=== PATIENT | male | born 1990 | race Hispanic/Latino ===

== ENCOUNTER 2017-11-28 15:14 | Emergency (ER) | payer SELFPAY ==
[2017-11-28] MEDS ORDERED: Lidocaine Viscous Sol 2% 15 ml UD Cup ONE (15:42)
[2017-11-28] MEDS ORDERED: Mag-Al Plus 1200 MG/1200 MG/120 MG/30 ML UDCUP ONE (15:42)
== END 2017-11-28 16:15 | disposition home or self-care (01) ==
LOC: MADERS 15:14
DX: K29.00 Acute gastritis without bleeding (principal)
CPT/HCPCS: 99283

== ENCOUNTER 2018-10-11 11:28 | Emergency (ER) | payer SELFPAY ==
[2018-10-11] MEDS ORDERED: Adacel (T-DAP) 0.5 ML SYRINGE ONE (12:43)
== END 2018-10-11 13:36 | disposition home or self-care (01) ==
LOC: MADERS 11:28
DX: T22.211A Burn of second degree of right forearm, initial encounter (principal); X16.XXXA Contact with hot heating appliances, radiators and pipes, initial encounter; Y92.69 Other specified industrial and construction area as the place of occurrence of the external cause
CPT/HCPCS: 90471; 90715